=== PATIENT | female | born 1990 | race Caucasian/White ===

== ENCOUNTER 2019-08-20 12:47 | Inpatient (IN) ==
[2019-08-20] MEDS ORDERED: ceFAZolin 2,000 MG in PREMIX 1 EACH IV ONE (13:06)
[2019-08-20] MEDS ORDERED: CITRIC ACID/SODIUM CITRATE 30 ML UDCUP PO ONE (13:06)
[2019-08-20] MEDS ORDERED: FAMOTIDINE 20 MG/2 ML VIAL IV ONE (13:06)
[2019-08-20] MEDS: LACTATED RINGERS 1,000 ML IV SCH (13:23)
[2019-08-20 13:24] LABS: Basophils % 0.1 % (0.0-0.8); Hematocrit 29.4 VOL% (35.7-47.0); Hemoglobin 8.8 GM/DL (12.0-16.0); Immature Granulocytes % 0.9 %; Immature Granulocytes Absolute 0.06 #; Lymphocytes # 1.3 10*3/uL (1.4-4.0); Lymphocytes % 19.8 % (21.3-54.2); Mean Corpuscular HGB Conc 29.9 GM/DL (32-36); Mean Corpuscular Volume 87.5 FL (87-102); Mean Platelet Volume 11.1 FL (9.6-12.0); Monocytes % 7.3 % (1.7-12.7); Neutrophils % 71.9 % (38.7-73.9); Platelet Count 220 T/CUMM (130-400); Red Blood Count 3.36 MC/CUMM (3.8-5.5); White Blood Count 6.7 T/CUMM (4-12)
[2019-08-20] MEDS ORDERED: LACTATED RINGERS 1,000 ML IV ONE (14:00)
[2019-08-20] MEDS ORDERED: OXYTOCIN/LR 20 UNIT/1,000 ML BAG IV ONE ×2 (14:09→16:00)
[2019-08-20] MEDS ORDERED: BUPIVACAINE 0.5% 50 ML VIAL ONE (15:21)
[2019-08-20] MEDS ORDERED: RHO(D) IMMUNE GLOBULIN 300 MCG SYRINGE IM ONE (16:00)
[2019-08-20] MEDS ORDERED: ACETAMINOPHEN 325 MG TABLET PO PRN (16:00)
[2019-08-20] MEDS ORDERED: ONDANSETRON 4 MG/2 ML VIAL IV PRN (16:00)
[2019-08-20] MEDS ORDERED: LACTATED RINGERS 1,000 ML IV SCH (16:00)
[2019-08-20] MEDS ORDERED: BUPIVACAINE SPINAL 0.75% 2 ML AMP SPINAL ONE (16:30)
[2019-08-20] MEDS ORDERED: ONDANSETRON 4 MG/2 ML VIAL ONE (16:31)
[2019-08-20] MEDS ORDERED: MORPHINE 10 MG/10 ML VIAL ONE (16:31)
[2019-08-20] MEDS ORDERED: PHENYLEPHRINE 1 MG/10 ML SYRINGE IV ONE (16:31)
[2019-08-20 17:26] LABS: Apearance,Urine CLEAR (Clear); Bacteria,Urine Occasional /HPF (Few); Bilirubin,Urine Negative (Negative); Blood, Urine Negative (Negative); Glucose,Urine (UA) Negative (Negative); Ketones,Urine 80 mg/dL (Negative); Mucus,Urine Moderate /LPF (Occasional); Nitrite,Urine Negative (Negative); Protein,Urine 30 MG/DL; RBC,Urine 1 /HPF (0-4); Squamous Epithelial Cell,Urine Occasional /HPF (0-10); Urine Color Yellow (Yellow); WBC,Urine 1 /HPF (0-6)
[2019-08-20] MEDS ORDERED: ALBUTEROL 2.5 MG/3 ML NEB RESP TX ONE (20:25)
[2019-08-20] MEDS: DOCUSATE SODIUM 100 MG CAPSULE PO SCH (22:12)
[2019-08-20] MEDS: ceFAZolin 1,000 MG in SYRINGE 1 EACH IV SCH (23:34)
[2019-08-20] MEDS: OSELTAMIVIR 75 MG CAPSULE PO SCH (23:34)
[2019-08-21] MEDS: LACTATED RINGERS 1,000 ML IV SCH (02:59)
[2019-08-21 05:48] LABS: Basophils % 0.2 % (0.0-0.8); Hemoglobin 8.1 GM/DL (12.0-16.0); Immature Granulocytes % 0.7 %; Immature Granulocytes Absolute 0.04 #; Lymphocytes # 1.1 10*3/uL (1.4-4.0); Lymphocytes % 18.6 % (21.3-54.2); Mean Corpuscular Volume 87.9 FL (87-102); Mean Platelet Volume 11.4 FL (9.6-12.0); Monocytes % 5.1 % (1.7-12.7); Neutrophils % 75.4 % (38.7-73.9); Platelet Count 174 T/CUMM (130-400); Red Blood Count 3.07 MC/CUMM (3.8-5.5); Red Cell Distribution Width 16.1 % (9.3-17.3)
[2019-08-21] MEDS: ceFAZolin 1,000 MG in SYRINGE 1 EACH IV SCH (07:05)
[2019-08-21] MEDS: DOCUSATE SODIUM 100 MG CAPSULE PO SCH ×2 (09:11→20:40)
[2019-08-21] MEDS: OSELTAMIVIR 75 MG CAPSULE PO SCH ×2 (09:12→20:40)
[2019-08-21] MEDS: SIMETHICONE CHEW 80 MG TABLET PO PRN (09:12)
[2019-08-21] MEDS: MAGNESIUM HYDROXIDE SUSP 30 ML UDCUP PO PRN (09:12)
[2019-08-21] MEDS: MULTIVITAMIN (PRENATAL) TABLET PO SCH (09:12)
[2019-08-21] MEDS: IBUPROFEN 800 MG TABLET PO PRN ×2 (13:40→20:40)
[2019-08-22] MEDS: DOCUSATE SODIUM 100 MG CAPSULE PO SCH (10:18)
[2019-08-22] MEDS: MAGNESIUM HYDROXIDE SUSP 30 ML UDCUP PO PRN (10:18)
[2019-08-22] MEDS: MULTIVITAMIN (PRENATAL) TABLET PO SCH (10:18)
[2019-08-22] MEDS: SIMETHICONE CHEW 80 MG TABLET PO PRN (10:18)
[2019-08-22] MEDS: OSELTAMIVIR 75 MG CAPSULE PO SCH (10:19)
[2019-08-22] MEDS: IBUPROFEN 800 MG TABLET PO PRN (10:24)
[2019-08-22 14:45] VITALS: BP 103/43
== END 2019-08-22 14:30 | disposition home or self-care (01) | DRG 540 ==
LOC: N.LDOUT 12:47 → N.LD 12:54 → N.OB 21:30
PROVIDERS: ADMIT Obstetrics & Gynecology; ATTEND Obstetrics & Gynecology